=== PATIENT | male | born 1960 ===

== ENCOUNTER 2021-05-28 04:50 | Emergency (ER) | payer BC, MEDICAID ==
[~2021-05-28] VITALS: Ht 177.8 cm; Wt 163.3 kg
--- NOTE | 2021-05-28 05:08 | NUR ---
Pt ambulated to ER and stated he donated plasma yesterday at 1900 on RAC and states shortly after procedure was done site started bleeding and was rewrap. Patient states he left dressing on for 7hrs and attempted to remove it at 0300 today and started bleeding again. A/O x4, no SOB or labored breathing, afebrile. Denies any n/v/d or [facility]AY[place]. No GI/ distress.
--- NOTE | 2021-05-28 05:10 | NUR ---
Dr. Myers at bedside, MSE in progress.
[2021-05-28] MEDS ORDERED: SIMV10TA98 PO (05:21)
[2021-05-28] MEDS ORDERED: januvia (05:21)
[2021-05-28] MEDS ORDERED: DABI150C PO (05:21)
[2021-05-28 05:44] LABS: HEMATOCRIT 42.6 % (36.7-47.1); MEAN CORPUSCULAR HEMOGLOBIN 24.5 uug (23.8-33.4); MEAN CORPUSCULAR VOLUME 76.2 fL (73.0-96.2); PLATELET COUNT (AUTO) 404 K/uL (152-348)
[2021-05-28 05:52] LABS: CREATININE 1.7 mg/dL (0.6-1.3); POTASSIUM 4.4 mmol/L (3.5-5.1)
[2021-05-28 05:58] LABS: BILIRUBIN,DIRECT 0.2 mg/dL (0.0-0.2); BILIRUBIN,TOTAL 0.5 mg/dL (0.2-1.0); TOTAL PROTEIN, SERUM 7.5 g/dL (6.4-8.2)
[2021-05-28 06:44] VITALS: BP 122/72
--- NOTE | 2021-05-28 06:44 | NUR ---
Patient discharged to home in stable condition. A/O x4, denies any pain/discomfort. No bleeding noted. RAC covered in clean dry dressing. Written and verbal after care instructions given. Patient verbalizes understanding of instructions. Stressed follow up or return to ER for worsening s/s. Steady gait.
== END 2021-05-28 06:45 | disposition home or self-care (01) ==
LOC: ER 04:54
DX: I97.620 Postprocedural hemorrhage of a circulatory system organ or structure following other procedure (principal); E78.5 Hyperlipidemia, unspecified; E11.9 Type 2 diabetes mellitus without complications; Z79.02 Long term (current) use of antithrombotics/antiplatelets; Z79.899 Other long term (current) drug therapy
CPT/HCPCS: 36415; 85025; 85730; A4663